=== PATIENT | female | born 1990 | race Two or more races ===

== ENCOUNTER 2016-11-05 01:12 | Emergency (ER) | payer OTHER ==
[~2016-11-05] VITALS: Ht 165.1 cm; Wt 140.8 kg
[2016-11-05 01:13] VITALS: BP 140/87
[2016-11-05] MEDS ORDERED: DIPHENHYDRAMINE 50 MG CAPSULE ONE (01:50)
[2016-11-05] MEDS ORDERED: KETOROLAC 30 MG/1 ML ONE (01:50)
[2016-11-05] MEDS ORDERED: DIPHENHYDRAMINE 25 MG CAPSULE PO ONE (02:00)
[2016-11-05] MEDS ORDERED: KETOROLAC 30 MG/1 ML IM ONE (02:00)
[2016-11-05] MEDS ORDERED: METOCLOPRAMIDE 10MG TABLET PO ONE (02:00)
== END 2016-11-05 02:18 | disposition home or self-care (01) ==
LOC: ED 02:10
DX: R51 Headache (principal); I10 Essential (primary) hypertension; Z88.0 Allergy status to penicillin
CPT/HCPCS: 93005; 96372; 99283; J1885; Q0163